=== PATIENT | male | born 1950 | race African-American/Black ===

== ENCOUNTER 2017-02-13 23:05 | Emergency (ER) | payer MEDICARE | END 2017-02-14 01:08 | disposition home or self-care (01) | LOC: ER 23:05 | DX: I69.320 Aphasia following cerebral infarction (principal); E78.00 Pure hypercholesterolemia, unspecified; I11.0 Hypertensive heart disease with heart failure; I50.9 Heart failure, unspecified; J44.9 Chronic obstructive pulmonary disease, unspecified; Z90.49 Acquired absence of other specified parts of digestive tract; F17.210 Nicotine dependence, cigarettes, uncomplicated | CPT/HCPCS: 99281 ==